=== PATIENT | male | born 1960 | race Caucasian/White ===

== ENCOUNTER 2017-12-19 13:45 | Emergency (ER) | payer BC ==
[~2017-12-19] VITALS: Ht 193 cm; Wt 113.2 kg
[~2017-12-19 13:45] MED LIST: ASPIRIN 32325 MG/TAB PO; CLARITIN 1010 MG/TAB PO; MEVACOR40 MG PO; PRINIVIL10 MG PO; UNABLE
[2017-12-19 14:05] LABS: BASO # 0.1 (0.0-0.2); BASO % 0.6 % (0.0-2.0); EOS # 0.2 (0.0-0.7); EOS % 1.7 % (0-4.0); GRAN # 4.4 (1.4-6.5); GRAN % 44.3 % (42.2-75.2); HEMATOCRIT 49.5 % (42.0-52.0); LYMPH # 4.4 (1.2-3.4); LYMPH % 44.2 % (20.0-51.0); MEAN CELL VOLUME 83 fl (80.0-100.0); MEAN CORPUSCULAR HEMOGLOBIN 27 pg (27.0-31.0); MEAN CORPUSCULAR HGB CONC 32 g/dl (33.0-37.0); MEAN PLATELET VOLUME 10.8 fl (7.4-10.4); MONO # 0.9 (0.1-0.6); MONO % 8.8 % (1.7-9.3); PLATELET COUNT 211 K/mm3 (130-400); RED BLOOD COUNT 5.94 M/mm3 (4.20-5.60); REDCELL DISTRIBUTION WIDTH-CV 14.6 % (11.5-14.5)
[2017-12-19 14:10] LABS: INR 0.9 (0.8-3.0); PROTHROMBIN TIME 10.9 SECONDS (9.7-12.8)
[2017-12-19 14:12] LABS: PARTIAL THROMBOPLASTIN TIME 28.1 SECONDS (26.0-37.0)
[2017-12-19 14:19] LABS: ALANINE AMINOTRANSFERASE 31 U/L (21-72); ALBUMIN 4.7 gm/dL (3.5-5.0); ALKALINE PHOSPHATASE 81 U/L (50-136); ANION GAP 24 mmol/L (7-16); AST,SGOT 29 U/L (15-37); BILIRUBIN,TOTAL 0.3 mg/dL (0.0-1.0); BLOOD UREA NITROGEN 14 mg/dL (9-20); CALCIUM 9.6 mg/dL (8.4-10.2); CARBON DIOXIDE 18 mmol/L (22-30); CHLORIDE 102 mmol/L (98-107); CREATININE, serum 1.07 mg/dL (0.66-1.25); GLUCOSE 85 mg/dL (74-106); POTASSIUM 3.8 mmol/L (3.4-5.0); SODIUM 144 mmol/L (137-145); TOTAL PROTEIN 8.1 gm/dL (6.4-8.2)
[2017-12-19 14:30] LABS: TROPONIN-I < 0.012 ng/mL (0.000-0.034)
[2017-12-19 17:13] VITALS: BP 127/76; PULSE 76
== END 2017-12-19 17:15 | disposition home or self-care (01) ==
LOC: COL.ER 13:45
PROVIDERS: Family Medicine
DX: E86.0 Dehydration (principal); R07.9 Chest pain, unspecified; Z79.82 Long term (current) use of aspirin
CPT/HCPCS: J7030